=== PATIENT | female | born 1995 | race Caucasian/White ===

== ENCOUNTER 2017-08-19 13:20 | Day surgery (SDC) | payer OTHER ==
[2017-08-19] MEDS ORDERED: PROPOFOL 20 ML (15:04)
[2017-08-19] MEDS ORDERED: MIDAZOLAM 1 MG/ML 2 ML INJ (15:04)
[2017-08-19] MEDS ORDERED: LIDOCAINE 1% (MPF) 5 ML VIAL (15:05)
== END 2017-08-19 16:57 | disposition home or self-care (01) ==
LOC: GIL 13:20
DX: K29.60 Other gastritis without bleeding (principal); K51.90 Ulcerative colitis, unspecified, without complications; E66.9 Obesity, unspecified; Z68.35 Body mass index [BMI] 35.0-35.9, adult
CPT/HCPCS: 43239; 84703; 87081; 88305